=== PATIENT | male | born 1970 | race Caucasian/White ===

== ENCOUNTER 2018-05-17 07:29 | Emergency (ER) | payer OTHER ==
[2018-05-17] MEDS ORDERED: Sodium Chloride 0.9% 2.5 ML Syringe FLUSH PRN (08:03)
[2018-05-17] MEDS ORDERED: Sodium Chloride 0.9% 10 ML Syringe FLUSH PRN (08:03)
[2018-05-17] MEDS ORDERED: Diphtheria,Pertussis(Acell),Tetanus Vaccine 0.5 ML Syringe IM ONE (08:03)
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
--- NOTE | 2018-05-17 08:37 | CR ---
EXAMINATION: Left forearm HISTORY: Rule out gas COMPARISON: None TECHNIQUE: 2 views FINDINGS/IMPRESSION: There is no acute osseous abnormality, dislocation, or fracture. Bone mineraliza tion and joint spaces are preserved. Mild generalized soft tissue swelling without evidence of subcut aneous gas.
[2018-05-17 09:01] LABS: CHLORIDE,CL 105 mmol/L (98-107); SODIUM,NA 140 mmol/L (136-148)
== END 2018-05-17 09:49 | disposition home or self-care (01) ==
LOC: MW.ED 07:29
DX: S50.862A Insect bite (nonvenomous) of left forearm, initial encounter (principal); L03.114 Cellulitis of left upper limb; F17.210 Nicotine dependence, cigarettes, uncomplicated; Z23 Encounter for immunization; W57.XXXA Bitten or stung by nonvenomous insect and other nonvenomous arthropods, initial encounter
CPT/HCPCS: 36415; 73090; 80053; 83605; 85025; 90715; 96361; 96374; 99284; J3370; J7050

== ENCOUNTER 2019-02-11 21:13 | Emergency (ER) | payer OTHER ==
[2019-02-11] MEDS ORDERED: Ketorolac 60 MG/2 ML SDV IM ONE (21:45)
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
[2019-02-11] MEDS ORDERED: traMADol 50 MG Tab PO ONE (21:50)
[2019-02-11] MEDS ORDERED: Bacitracin Oint 1 GM U/D Packet TOP ONE (21:55)
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
== END 2019-02-11 23:35 | disposition home or self-care (01) ==
LOC: MW.ED 21:13
DX: S29.9XXA Unspecified injury of thorax, initial encounter (principal); S00.31XA Abrasion of nose, initial encounter; S09.90XA Unspecified injury of head, initial encounter; Y04.8XXA Assault by other bodily force, initial encounter
CPT/HCPCS: 70160; 71101; 99284; A9270

== ENCOUNTER 2022-01-11 14:55 | Emergency (ER) | payer OTHER ==
[2022-01-11] MEDS ORDERED: Sodium Chloride 0.9% 10 ML Syringe FLUSH PRN (15:09)
[2022-01-11] MEDS ORDERED: Sodium Chloride 0.9% 2.5 ML Syringe FLUSH PRN (15:09)
[2022-01-11 16:21] LABS: BLOOD UREA NITROGEN,BUN 14 mg/dL (7.0-18.0); CARBON DIOXIDE,CO2 22.8 mmol/L (21.0-32.0); CHLORIDE,CL 102 mmol/L (98-107); GLUCOSE RANDOM 92 mg/dL (74-106); LIPASE 96 U/L (73-393); POTASSIUM,K 3.7 mmol/L (3.5-5.1); SODIUM,NA 137 mmol/L (136-148)
[2022-01-11] MEDS ORDERED: Iopamidol 755 MG/ML 500 ML Multipack Bottle IVPUSH STA (17:33)
== END 2022-01-11 20:04 | disposition home or self-care (01) ==
LOC: MW.ED 14:55
DX: R07.89 Other chest pain (principal); M54.2 Cervicalgia; Z87.891 Personal history of nicotine dependence
CPT/HCPCS: 36415; 70496; 70498; 71045; 80053; 83690; 84484; 85025; 85610; 93005; 99285; Q9967; 93010; 99284